=== PATIENT | female | born 1995 | race African-American/Black ===

== ENCOUNTER 2020-09-17 06:25 | Emergency (ER) | payer OTHER ==
[~2020-09-17] VITALS: Ht 172.7 cm; Wt 90.6 kg
[2020-09-17 08:32] VITALS: BP 122/60
[2020-09-17] MEDS ORDERED: FLUC150T PO (08:32)
[2020-09-17] MEDS ORDERED: MACR100C43 PO (08:44)
[2020-09-17 09:28] LABS: CHLAMYDIA DNA AMPLIFICATION NEGATIVE (NEGATIVE); GC DNA AMPLIFICATION NEGATIVE (NEGATIVE)
== END 2020-09-17 08:43 | disposition home or self-care (01) ==
LOC: M ED 06:25
DX: N76.0 Acute vaginitis (principal); Z87.42 Personal history of other diseases of the female genital tract; Z91.040 Latex allergy status

== ENCOUNTER 2021-01-25 10:04 | Emergency (ER) | payer OTHER ==
[~2021-01-25] VITALS: Ht 175.3 cm; Wt 87.6 kg
[~2021-01-25 10:04] MED LIST: FLUC150T PO; MACR100C43 PO
[2021-01-25 10:09] VITALS: BP 129/68
[2021-01-25] MEDS ORDERED: ACETAMINOPHEN 325 MG TAB PO ONE (12:25)
== END 2021-01-25 12:47 | disposition home or self-care (01) ==
LOC: M ED 10:04
DX: R09.81 Nasal congestion (principal); R51.9 Headache, unspecified; R05 Cough; Z87.42 Personal history of other diseases of the female genital tract

== ENCOUNTER 2022-02-01 09:34 | Emergency (ER) | payer OTHER ==
[~2022-02-01] VITALS: Ht 175.3 cm; Wt 94.0 kg
[~2022-02-01 09:34] MED LIST changes: -FLUC150T PO; +FLUC150T9 PO
[2022-02-01] MEDS ORDERED: LIDOCAINE 2% MDV 20ML VIAL SC ONE (10:30)
[2022-02-01] MEDS ORDERED: NEOSPORIN OINT 0.9 GM PKT TOP ONE (11:10)
[2022-02-01 11:18] VITALS: BP 126/71
== END 2022-02-01 11:19 | disposition home or self-care (01) ==
LOC: M ED 09:34
DX: S61.317A Laceration without foreign body of left little finger with damage to nail, initial encounter (principal); W26.8XXA Contact with other sharp object(s), not elsewhere classified, initial encounter; Y92.009 Unspecified place in unspecified non-institutional (private) residence as the place of occurrence of the external cause; Y93.9 Activity, unspecified; Y99.9 Unspecified external cause status; Z91.040 Latex allergy status

== ENCOUNTER 2022-07-21 14:44 | Emergency (ER) | payer OTHER ==
[~2022-07-21] VITALS: Ht 175.3 cm; Wt 95.5 kg
[2022-07-21 15:25] LABS: BASO % 0.6 % (0.0-1.0); EOS # 0.2 10^3/uL (0.0-0.5); EOS % 3.1 % (0.0-3.0); HEMATOCRIT 39.7 % (36.0-47.0); HEMOGLOBIN 12.5 g/dl (12.0-15.5); LYMPH # 2.8 10^3/uL (1.5-5.0); LYMPH % 42.1 % (24.0-44.0); MEAN CORPUSCULAR HEMOGLOBIN 27.8 pg (27.0-33.0); MEAN CORPUSCULAR HGB CONC 31.5 g/dl (32.0-36.5); MEAN CORPUSCULAR VOLUME 88.4 fl (80.0-96.0); MONO # 0.8 10^3/uL (0.0-0.8); MONO % 11.9 % (2.0-8.0); NEUTROPHILS # 2.8 10^3/uL (1.5-8.5); NEUTROPHILS % 42.2 % (36.0-66.0); PLATELET COUNT, AUTOMATED 387 10^3/uL (150-450); RED BLOOD COUNT 4.49 10^6/uL (4.00-5.40); WHITE BLOOD COUNT 6.7 10^3/uL (4.0-10.0)
[2022-07-21 16:09] LABS: BLOOD UREA NITROGEN 7 MG/DL (7-18); CALCIUM LEVEL 8.6 MG/DL (8.5-10.1); CARBON DIOXIDE LEVEL 26 MEQ/L (21-32); CHLORIDE LEVEL 108 MEQ/L (98-107); CREATININE FOR GFR 0.82 MG/DL (0.55-1.30); GLOMERULAR FILTRATION RATE > 60.0 (>60); GLUCOSE, FASTING 111 MG/DL (70-100); HCG, SERUM QUANTITATIVE 1911 MIU/ML; POTASSIUM SERUM 3.6 MEQ/L (3.5-5.1); SODIUM LEVEL 139 MEQ/L (136-145)
[2022-07-21 17:53] VITALS: BP 125/84
== END 2022-07-21 17:57 | disposition home or self-care (01) ==
LOC: M ED 14:44
DX: O26.891 Other specified pregnancy related conditions, first trimester (principal); R10.9 Unspecified abdominal pain; R11.0 Nausea; Z3A.01 Less than 8 weeks gestation of pregnancy

== ENCOUNTER 2022-12-20 06:49 | Emergency (ER) | payer OTHER ==
[~2022-12-20] VITALS: Ht 175.3 cm; Wt 107.3 kg
[2022-12-20] MEDS ORDERED: NS 1,000 ML IV ONE (08:30)
[2022-12-20 08:54] LABS: BASO # 0.1 10^3/uL (0.0-0.2); BASO % 0.8 % (0.0-1.0); EOS # 0.2 10^3/uL (0.0-0.5); EOS % 2.8 % (0.0-3.0); HEMATOCRIT 41.5 % (36.0-47.0); HEMOGLOBIN 13.1 g/dl (12.0-15.5); LYMPH # 2.9 10^3/uL (1.5-5.0); LYMPH % 47.3 % (24.0-44.0); MEAN CORPUSCULAR HEMOGLOBIN 28.1 pg (27.0-33.0); MEAN CORPUSCULAR HGB CONC 31.6 g/dl (32.0-36.5); MEAN CORPUSCULAR VOLUME 88.9 fl (80.0-96.0); MONO # 0.7 10^3/uL (0.0-0.8); MONO % 10.5 % (2.0-8.0); NEUTROPHILS # 2.4 10^3/uL (1.5-8.5); NEUTROPHILS % 38.4 % (36.0-66.0); PLATELET COUNT, AUTOMATED 340 10^3/uL (150-450); RED BLOOD COUNT 4.67 10^6/uL (4.00-5.40); WHITE BLOOD COUNT 6.2 10^3/uL (4.0-10.0)
[2022-12-20] MEDS ORDERED: ISOVUE-370 76% 100ML VIAL As Ordered ONE (09:04)
[2022-12-20 09:22] LABS: ALBUMIN 3.9 G/DL (3.2-5.2); BILIRUBIN,DIRECT 0.1 MG/DL (<0.4); BILIRUBIN,TOTAL 0.3 MG/DL (0.3-1.2); TOTAL PROTEIN 7.8 G/DL (5.7-8.2)
[2022-12-20 14:27] LABS: GC DNA AMPLIFICATION NEGATIVE (NEGATIVE)
[2022-12-20] MEDS ORDERED: IBUP80TA PO (14:38)
[2022-12-20 14:45] VITALS: BP 119/71
== END 2022-12-20 14:48 | disposition home or self-care (01) ==
LOC: M ED 06:49
DX: R10.2 Pelvic and perineal pain (principal); M54.50 Low back pain, unspecified; Z87.59 Personal history of other complications of pregnancy, childbirth and the puerperium; Z91.040 Latex allergy status; K76.0 Fatty (change of) liver, not elsewhere classified
CPT/HCPCS: 74177; 76830; 76856; 80047; 80076; 81001; 83690; 84702; 85025; 87210; 87661; 87810; 87850; 87880; 93976; 96360; 96361; 99284; Q9967

== ENCOUNTER → 2023-01-04 | Outpatient (REF) | payer OTHER ==
[~2023-01-04] MED LIST changes: +IBUP80TA PO
[2023-01-04 19:27] LABS: GC DNA AMPLIFICATION NEGATIVE (NEGATIVE)
== END ==
LOC: M LAB REF 17:37
PROVIDERS: ATTEND Physician Assistant
DX: R30.0 Dysuria (principal)

== ENCOUNTER 2023-01-21 02:33 | Emergency (ER) | payer OTHER ==
[~2023-01-21] VITALS: Ht 175.3 cm; Wt 109.0 kg
[2023-01-21 02:33] VITALS: BP 132/67
[2023-01-21 03:14] LABS: APPEARANCE, URINE HAZY (CLEAR); BACTERIA, URINE AUTO 1+ (NEGATIVE); BILIRUBIN, URINE AUTO NEGATIVE (NEGATIVE); BLOOD, URINE BLOOD NEGATIVE (NEGATIVE); COLOR, URINE YELLOW (YELLOW); GLUCOSE, URINE (UA) AUTO NEGATIVE (NEGATIVE); KETONE, URINE AUTO TRACE mg/dL (NEGATIVE); LEUKOCYTE ESTERASE, URINE AUTO NEGATIVE (NEGATIVE); MUCUS, URINE SMALL (NEGATIVE); NITRITE, URINE AUTO NEGATIVE (NEGATIVE); PROTEIN, URINE AUTO NEGATIVE (NEGATIVE); RBC, URINE AUTO 1 /HPF (0-3); SQUAMOUS EPITHELIAL CELL UR AU 7 /HPF (0-6); UROBILINOGEN, URINE AUTO 0.2 mg/dL (0.0-2.0); WBC, URINE AUTO 1 /HPF (0-3)
[2023-01-21 03:25] LABS: BASO % 0.4 % (0.0-1.0); EOS # 0.2 10^3/uL (0.0-0.5); EOS % 2.2 % (0.0-3.0); HEMATOCRIT 39.4 % (36.0-47.0); HEMOGLOBIN 12.8 g/dl (12.0-15.5); LYMPH # 2.8 10^3/uL (1.5-5.0); LYMPH % 31.7 % (24.0-44.0); MEAN CORPUSCULAR HEMOGLOBIN 28.2 pg (27.0-33.0); MEAN CORPUSCULAR HGB CONC 32.5 g/dl (32.0-36.5); MEAN CORPUSCULAR VOLUME 86.8 fl (80.0-96.0); MONO # 0.9 10^3/uL (0.0-0.8); NEUTROPHILS % 55.4 % (36.0-66.0); PLATELET COUNT, AUTOMATED 337 10^3/uL (150-450); RED BLOOD COUNT 4.54 10^6/uL (4.00-5.40)
[2023-01-21 03:48] LABS: LIPASE 33 U/L (12-53)
[2023-01-21 03:51] LABS: ALBUMIN 3.8 G/DL (3.2-5.2); ALKALINE PHOSPHATASE 62 U/L (46-116); ALT/SGPT 27 U/L (7.0-40); AST/SGOT 21 U/L (<34); BILIRUBIN,DIRECT < 0.1 MG/DL (<0.4); BILIRUBIN,TOTAL 0.3 MG/DL (0.3-1.2); BLOOD UREA NITROGEN 12 MG/DL (9-23); CALCIUM LEVEL 9.1 MG/DL (8.5-10.1); CARBON DIOXIDE LEVEL 24 MMOL/L (20-31); CHLORIDE LEVEL 105 MMOL/L (98-107); CREATININE FOR GFR 0.78 MG/DL (0.55-1.30); GLOMERULAR FILTRATION RATE > 60.0 (>60); GLUCOSE, FASTING 91 MG/DL (60-100); SODIUM LEVEL 136 MMOL/L (136-145); TOTAL PROTEIN 7.3 G/DL (5.7-8.2)
[2023-01-21 04:11] LABS: HCG, SERUM QUANTITATIVE 12068.7 MIU/ML (<4.2)
[2023-01-21 04:42] LABS: GC DNA AMPLIFICATION NEGATIVE (NEGATIVE)
== END 2023-01-21 04:13 | disposition left against medical advice (07) ==
LOC: M ED 02:33
DX: Z53.21 Procedure and treatment not carried out due to patient leaving prior to being seen by health care provider (principal)

== ENCOUNTER → 2023-02-05 | Outpatient (REF) | payer OTHER | LOC: M LAB REF 12:10 | PROVIDERS: ATTEND Nurse Practitioner Family | DX: N89.8 Other specified noninflammatory disorders of vagina (principal); R30.0 Dysuria ==

== ENCOUNTER 2023-02-16 19:48 | Emergency (ER) | payer OTHER ==
[~2023-02-16] VITALS: Ht 175.3 cm; Wt 109.0 kg
[2023-02-16] MEDS ORDERED: MULTTAB20 PO (20:01)
[2023-02-16 20:22] LABS: BASO % 0.4 % (0.0-1.0); EOS # 0.2 10^3/uL (0.0-0.5); EOS % 1.7 % (0.0-3.0); HEMATOCRIT 38.2 % (36.0-47.0); HEMOGLOBIN 12.6 g/dl (12.0-15.5); LYMPH # 3.3 10^3/uL (1.5-5.0); LYMPH % 34.2 % (24.0-44.0); MEAN CORPUSCULAR HEMOGLOBIN 28.8 pg (27.0-33.0); MEAN CORPUSCULAR VOLUME 87.2 fl (80.0-96.0); MONO # 0.8 10^3/uL (0.0-0.8); MONO % 8.6 % (2.0-8.0); NEUTROPHILS # 5.2 10^3/uL (1.5-8.5); NEUTROPHILS % 54.9 % (36.0-66.0); PLATELET COUNT, AUTOMATED 348 10^3/uL (150-450); RED BLOOD COUNT 4.38 10^6/uL (4.00-5.40); WHITE BLOOD COUNT 9.6 10^3/uL (4.0-10.0)
[2023-02-16 21:46] LABS: GC DNA AMPLIFICATION NEGATIVE (NEGATIVE)
[2023-02-17 00:07] VITALS: BP 125/61; TEMP 97.5; O2SAT 100
== END 2023-02-17 00:11 | disposition home or self-care (01) ==
LOC: M ED 19:48
DX: O26.891 Other specified pregnancy related conditions, first trimester (principal); N89.9 Noninflammatory disorder of vagina, unspecified; Z3A.10 10 weeks gestation of pregnancy